=== PATIENT | female | born 1940 ===

== ENCOUNTER 2018-04-04 13:55 | Emergency (ER) | payer MEDICARE ==
[2018-04-04 14:51] VITALS: BP 179/86; PULSE 97; TEMP 98.6; O2SAT 98
--- NOTE | 2018-04-04 16:31 | C.PDOC ---
History Of Present Illness 77 year old male previously diagnosed with vertigo was sent to the ED by PMD DR. Ortiz for evaluation of dizziness and headache that began today. Admits to taking Advil yesterday with no improvement. Denies daily medication(s), fever, nausea, vomiting, changes in vision, and any other associated symptoms. Time Seen by Provider: 04/04/18 15:52 Chief Complaint (Nursing): Dizziness/Lightheaded History Per: Patient History/Exam Limitations: no limitations Onset/Duration Of Symptoms: Hrs Current Symptoms Are (Timing): Still Present Past Medical History Reviewed: Historical Data, Nursing Documentation, Vital Signs Vital Signs: Last Vital Signs Temp 98.6 F 04/04/18 14:48 Pulse 97 H 04/04/18 14:48 Resp 18 04/04/18 14:48 BP 179/86 H 04/04/18 14:48 Pulse Ox 98 04/04/18 14:48 - Medical History PMH: Asthma, Hypercholesterolemia, Hypothyroidism Surgical History: Cholecystectomy Family History: States: Unknown Family Hx - Social History Hx Alcohol Use: No Hx Substance Use: No - Immunization History Hx Tetanus Toxoid Vaccination: No Hx Influenza Vaccination: Yes Hx Pneumococcal Vaccination: Yes Review Of Systems Except As Marked, All Systems Reviewed And Found Negative. Constitutional: Negative for: Fever Eyes: Negative for: Vision Change Gastrointestinal: Negative for: Nausea, Vomiting Neurological: Positive for: Headache, Dizziness Physical Exam - Physical Exam Appears: Well, Non-toxic, No Acute Distress Skin: Normal Color, Warm, Dry Head: Atraumatic, Normacephalic Eye(s): bilateral: PERRL Ear(s): Bilateral: Normal Oral Mucosa: Moist Neck: Normal ROM, Trachea Midline, Supple Chest: Symmetrical, No Deformity Cardiovascular: Rhythm Regular, No Murmur Respiratory: Normal Breath Sounds, No Rales, No Rhonchi, No Wheezing Extremity: Normal ROM (x4) Neurological/Psych: Oriented x3, Normal Speech, Normal Cognition, Normal Motor, Normal Sensation, Normal Reflexes, Other (mild vertigo. ) ED Course And Treatment - Laboratory Results Result Diagrams: 04/04/18 16:48 04/04/18 16:48 Lab Interpretation: Normal (ua neg.) ECG: Interpreted By Ma ECG Rhythm: Sinus Rhythm ECG Interpretation: Normal O2 Sat by Pulse Oximetry: 98 Pulse Ox Interpretation: Normal - Radiology CXR: Interpreted by Me CXR Interpretation: Yes: No Acute Disease - CT Scan/US CT Head Other Rad Studies (CT/US): Read By Radiologist CT/US Interpretation: IMPRESSION: No acute intracranial hemorrhage. Suspect minimal chronic periventricular white matter ischemic changes.. Mild generalized volume loss. Reevaluation Time: 17:29 Reassessment Condition: Improved Medical Decision Making Medical Decision Making: headache, congestion, vertigo exacerbation improved with Toradol and Meclizine Plan: --EKG. --Toradol. --Antivert. --Blood sent. --Urinalysis --CT Head w/o contrast. Progress/Update: Discussed cased with Dr. Ortiz who requests CT Head. Results discussed with the patient. Patient stable for discharge home. Prescribed Meclizine. Disposition Doctor Will See Patient In The: Office Counseled Patient/Family Regarding: Studies Performed, Diagnosis - Disposition Referrals: [facility] [Outside] [facility] [Outside] [facility] [Outside] Disposition: HOME/ ROUTINE Disposition Time: 17:30 Condition: GOOD Additional Instructions: Vertigo: Meclizine/Antivert 25 mg cada 6 horas chip necessario Dolor de smiley Ibuprofeno/Advil 400 mg cada 6 horas chip necessario Sigue con Dr. Cid Prescriptions: Meclizine [Meclizine*] 25 mg PO Q6 PRN #30 tab PRN Reason: vertigo Instructions: Vertigo (a Type of Dizziness) Forms: [facility] (Italian) Print Language: MAORI - Clinical Impression Clinical Impression: Dizziness - Scribe Statement The provider has reviewed the documentation as recorded by the Scribe (Estefanía Gage) Provider Attestation: All medical record entries made by the Scribe were at my direction and personally dictated by me. I have reviewed the chart and agree that the record accurately reflects my personal performance of the history, physical exam, medical decision making, and the department course for this patient. I have also personally directed, reviewed, and agree with the discharge instructions and disposition.
--- NOTE | 2018-04-04 16:49 | RAD ---
Date of service: 04/04/2018 HISTORY: SOB COMPARISON: Comparison made with prior chest radiograph 05/07/2016. FINDINGS: LUNGS: Poor inspiration with low lung volumes, crowded bronchovascular markings and minor bibasilar atelectasis. Tiny nodular density right lateral upper lobe overlying the right posterolateral 3rd rib could represent artifact though tiny granuloma not excluded. PLEURA: No significant pleural effusion identified, no pneumothorax apparent. CARDIOVASCULAR: Mild aortic atherosclerotic calcification present. Normal cardiac size. No pulmonary vascular congestion. OSSEOUS STRUCTURES: No significant abnormalities. VISUALIZED UPPER ABDOMEN: Normal. OTHER FINDINGS: None. IMPRESSION: Poor inspiration with low lung volumes, crowded bronchovascular markings and minor bibasilar atelectasis. Questionable artifact versus tiny granuloma right lateral upper lobe.
[2018-04-04 16:53] LABS: BASO # 0.1 K/uL (0.0-0.2); BASO % 0.6 % (0.0-2.0); EOS % 11.8 % (0.0-4.0); LYMPH # 3.2 K/uL (1.0-4.3); MEAN CELL VOLUME 89.1 fL (81.0-99.0); MEAN CORPUSCULAR HEMOGLOBIN 29.9 pg (27.0-31.0); MEAN CORPUSCULAR HGB CONC 33.5 g/dL (33.0-37.0); MEAN PLATELET VOLUME 7.7 fL (7.2-11.7); MONO # 0.5 K/uL (0.0-0.8); NEUT % 45.6 % (50.0-75.0); NRBC % 0.1 % (0.0-2.0); RBC 4.36 Mil/uL (3.80-5.20); RED CELL DISTRIBUTION WIDTH 14.7 % (11.5-14.5); WHITE BLOOD COUNT 8.9 K/uL (4.8-10.8)
[2018-04-04 16:58] LABS: SQUAMOUS EPITHIAL 10 /hpf (0-5); URINE BACTERIA RARE (<OCC); URINE BILIRUBIN NEGATIVE (NEGATIVE); URINE BLOOD 1+ (NEGATIVE); URINE CLARITY Hazy (Clear); URINE COLOR Yellow (YELLOW); URINE GLUCOSE (UA) NORMAL (Normal); URINE LEUKOCYTE ESTERASE 2+ Leu/uL (Negative); URINE PROTEIN NEGATIVE (NEGATIVE)
[2018-04-04 17:04] LABS: ALB/GLOB RATIO 1.3 (1.0-2.1); ALBUMIN 4.5 g/dL (3.5-5.0); ALT/SGPT 25 U/L (9-52); AST/SGOT 25 U/L (14-36); BLOOD UREA NITROGEN 16 mg/dL (7-17); CALCIUM 9.3 mg/dl (8.6-10.4); GFR NON-AFRICAN AMERICAN > 60
[2018-04-04 17:15] LABS: B-TYPE NATRIURETIC PEPTIDE 27.7 pg/mL (0-900)
--- NOTE | 2018-04-04 17:24 | CT ---
Date of service: 04/04/2018 PROCEDURE: CT HEAD WITHOUT CONTRAST. HISTORY: Acute on chronic vertigo COMPARISON: None available. TECHNIQUE: Axial computed tomography images were obtained through the head/brain without intravenous contrast. Radiation dose: Total exam DLP = 1059.47 mGy-cm. This CT exam was performed using one or more of the following dose reduction techniques: Automated exposure control, adjustment of the mA and/or kV according to patient size, and/or use of iterative reconstruction technique. FINDINGS: HEMORRHAGE: No acute parenchymal, subarachnoid or extra-axial hemorrhage. BRAIN: Suspect minimal chronic periventricular white matter ischemic changes. Note that the possibility of a tiny hyperacute infarct cannot be excluded on this exam. Mild generalized volume loss. No obvious parenchymal nor extra-axial mass or collection. No edema or mass effect. Minor vascular calcifications both carotid siphons. VENTRICLES: Unremarkable. No hydrocephalus. CALVARIUM: There are no acute calvarial fractures. PARANASAL SINUSES: Unremarkable as visualized. No significant inflammatory changes. MASTOID AIR CELLS: Unremarkable as visualized. No inflammatory changes. OTHER FINDINGS: None. IMPRESSION: No acute intracranial hemorrhage. Suspect minimal chronic periventricular white matter ischemic changes.. Mild generalized volume loss.
[2018-04-04 18:06] VITALS: RESP 20
== END 2018-04-04 18:05 | disposition home or self-care (01) ==
LOC: C.ER 13:55
DX: R42 Dizziness and giddiness (principal); E78.00 Pure hypercholesterolemia, unspecified; E03.9 Hypothyroidism, unspecified
CPT/HCPCS: 70450; 71045; 80053; 81001; 83880; 84484; 85025; 96374; 99285; J1885